=== PATIENT | female | born 1985 | race American Indian/Alaskan Native ===

== ENCOUNTER 2017-08-10 18:16 | Emergency (ER) | payer MEDICAID ==
[2017-08-10 18:31] VITALS: BP 128/63
--- NOTE | 2017-08-10 18:56 | EDM.PDOC ---
ED HPI GENERAL MEDICAL PROBLEM - General Chief Complaint: General Stated Complaint: TOOTHACHE Time Seen by Provider: 08/10/17 18:45 Source of Information: Reports: Patient History Limitations: Reports: No Limitations - History of Present Illness INITIAL COMMENTS - FREE TEXT/NARRATIVE: 31-year-old female who has several very deep dental caries has developed pain in the left mandibular molars. She is . She can see her dentist early this week. No significant facial swelling. Onset: Gradual (Worse this morning) - Related Data Allergies Allergy/AdvReac Type Severity Reaction Status Date / Time ibuprofen Allergy Nausea Verified 11/03/15 21:13 Penicillins Allergy Hives Verified 11/03/15 21:13 Home Meds: Home Meds Folic Acid 1 tab PO DAILY 08/10/17 [History] Multivit-Min/Iron Fum/Folic AC [Kbwnv-[id number]-Jrzmmiax Tablet] 1 tab PO DAILY [History] Ondansetron [Zofran ODT] 1 tab PO TID PRN 08/10/17 [History] Past Medical History - Past Health History Medical/Surgical History: Denies Medical/Surgical History [employer]GER History: Reports: - Past Surgical History Female Surgical History: Reports: Section Social & Family History - Tobacco Use Smoking Status *Q: Current Every Day Smoker Years of Tobacco use: 10 Packs/Tins Daily: 0.5 Used Tobacco, but Quit: No - Recreational Drug Use Recreational Drug Use: Yes Drug Use in Last 12 Months: Yes Recreational Drug Type: Reports: Marijuana/Hashish, Methamphetamine ED ROS GENERAL - Review of Systems Review Of Systems: See Below Constitutional: Denies: Fever, Chills Respiratory: Denies: Shortness of Breath Cardiovascular: Denies: Chest Pain GI/Abdominal: Denies: Abdominal Pain Skin: Reports: No Symptoms Neurological: Denies: Headache ED EXAM, GENERAL - Physical Exam Exam: See Below Exam Limited By: No Limitations General Appearance: Alert, No Apparent Distress Throat/Mouth: Other (Patient has several deep dental caries bilaterally in the molars. There is a small amount of erythema and swelling around the second molar of the left mandible with lateral decay) Course - Vital Signs Last Recorded V/S: Last Vital Signs Temp 97.3 F 08/10/17 18:43 Pulse 67 08/10/17 18:43 Resp 14 08/10/17 18:43 BP 128/63 08/10/17 18:43 Pulse Ox 99 08/10/17 18:43 - Re-Assessments/Exams Free Text/Narrative Re-Assessment/Exam: 08/10/17 18:54 Patient will be placed on clindamycin 3 times a day for the next 5 days until she can get in to see a dentist. She was given 10 hydrocodone for extra pain control. Departure - Departure Time of Disposition: 19:07 Disposition: Home, Self-Care 01 Condition: Good Clinical Impression: Dental abscess - Discharge Information Instructions: Dental Abscess, [id number] Referrals: PCP,None [Primary Care Provider] - Forms: ED Department Discharge Care Plan Goals: Take antibiotic as prescribed. Try naproxen for pain and add stronger pain medications if needed and call the dentist early next week for an appointment as soon as possible.
== END 2017-08-10 19:02 | disposition home or self-care (01) ==
LOC: JP.ED 18:16
DX: K04.7 Periapical abscess without sinus (principal); F17.210 Nicotine dependence, cigarettes, uncomplicated; Z88.0 Allergy status to penicillin; Z88.8 Allergy status to other drugs, medicaments and biological substances; Z79.899 Other long term (current) drug therapy
CPT/HCPCS: 99283